=== PATIENT | female | born 1995 | race Caucasian/White ===

== ENCOUNTER 2016-11-20 16:44 | Emergency (ER) | payer OTHER ==
[2016-11-20 16:54] VITALS: BP 143/89; PULSE 69; RESP 18; TEMP 98.1; O2SAT 96
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
[2016-11-20] MEDS ORDERED: IOPAMIDOL (ISOVUE 370) 100 ML BTL IV ONE (21:52)
== END 2016-11-20 22:13 | disposition home or self-care (01) ==
LOC: EEVIPCON 16:44 → SANE 22:13
DX: T74.21XA Adult sexual abuse, confirmed, initial encounter (principal); F17.200 Nicotine dependence, unspecified, uncomplicated; Y07.9 Unspecified perpetrator of maltreatment and neglect; Y92.009 Unspecified place in unspecified non-institutional (private) residence as the place of occurrence of the external cause
CPT/HCPCS: 82947-QW; Q9967